=== PATIENT | female | born 1965 | race Caucasian/White ===

== ENCOUNTER → 2017-10-13 | Outpatient (CLI) | payer OTHER ==
--- NOTE | 2017-10-13 09:26 | US ---
EXAMINATION TYPE: US abdomen complete DATE OF EXAM: 10/13/2017 COMPARISON: NONE CLINICAL HISTORY: R10.9 Abdominal Pain. EXAM MEASUREMENTS: Liver Length: 15.2 cm Gallbladder Wall: 0.1 cm CBD: 0.4 cm Spleen: 9.8 cm Right Kidney: 10.0 x 3.7 x 5.1 cm Left Kidney: 10.7 x 5.3 x 5.1 cm Pancreas: Obscured by bowel gas Liver: wnl Gallbladder: No stones seen Evidence for sonographic Sher's sign: no CBD: wnl Spleen: echogenic foci scattered throughout spleen Right Kidney: No hydronephrosis or masses seen Left Kidney: No hydronephrosis or masses seen Upper IVC: wnl Abd Aorta: Mostly Obscured by overlying bowel gas The liver is homogenous. The intrahepatic portion of the IVC and visualized abdominal aorta are with in normal limits. There is no evidence of cholelithiasis. Common bile duct is unremarkable. The pa ncreas is suboptimally evaluated as is obscured by overlying bowel gas on images saved. The spleen i s normal in size, few scattered hyperechoic foci likely reflect calcifications related to old granulo matous disease.. Kidneys are symmetric and free of hydronephrosis. No renal lesions are seen. IMPRESSION: Slightly suboptimal study without suspicious finding seen to account for patient's sympto ms.
== END | disposition home or self-care (01) ==
LOC: RADUSWWP 08:06
PROVIDERS: ATTEND Family Medicine
DX: R10.9 Unspecified abdominal pain (principal)
CPT/HCPCS: 76700

== ENCOUNTER 2021-05-21 13:32 | Emergency (ER) | payer OTHER ==
[2021-05-21 14:00] VITALS: TEMP 97.8
[2021-05-21] MEDS ORDERED: SODIUM CHLORIDE 0.9% 1,000 ML IV STA (14:49)
[2021-05-21] MEDS ORDERED: METOCLOPRAMIDE 5 MG/ML 2 ML VIAL IVP STA (14:49)
[2021-05-21] MEDS ORDERED: diphenhydrAMINE 50 MG/ML 1 ML VIAL IVP STA (14:49)
--- NOTE | 2021-05-21 14:55 | ED ---
General Adult HPI - General Chief complaint: Headache Stated complaint: Headache/Blurred Vision Time Seen by Provider: 05/21/21 14:14 Source: patient Mode of arrival: ambulatory Limitations: no limitations - History of Present Illness Initial comments: This 56-year-old female with a past medical history of hypertension presents emergency Department with left-sided headache that began last night. Patient states she had a slow progression of a left-sided headache last night and then began to have bilateral blurred vision yesterday afternoon. Patient states the blurred vision did resolve on its own later in the evening and the headache did subside, however when she woke up this morning her headache was back and centralized to the left posterior side of her head. She states she did show take some ibuprofen at home which did slightly relieve her pain Patient denies having headaches often. Patient states she does take lisinopril every night and did notice her symptoms resolved last night after taking the medication. Patient denies any one-sided visual change or loss of vision. Patient denies any one-sided weakness, trouble speaking, trouble swallowing. Patient states she did call her primary care provider today who didn't instruct her to come the emergency department for CT scan of her brain. Patient denies any chest pain, shortness of breath, abdominal pain, nausea, vomiting, lightheadedness, dizziness, change in bowel or bladder. She denies any recent falls, neck or back pain. She denies any eye pain. Patient states she does take lisinopril 20 mg a home and is unsure what her blood pressure was yesterday due to her not lopez ving a blood pressure cuff. - Related Data Home Medications Medication Instructions Recorded Confirmed Atorvastatin Calcium [Lipitor] 10 mg PO DAILY 05/21/21 05/21/21 Cholecalciferol [Vitamin D3 (25 25 mcg PO DAILY 05/21/21 05/21/21 Mcg = 1000 Iu)] Sertraline [Zoloft] 50 mg PO DAILY 05/21/21 05/21/21 lisinopriL [Zestril] 20 mg PO DAILY 05/21/21 05/21/21 Allergies Allergy/AdvReac Type Severity Reaction Status Date / Time No Known Allergies Allergy Verified 05/21/21 15:59 Review of Systems ROS Statement: Those systems with pertinent positive or pertinent negative responses have been documented in the HPI. ROS Other: All systems not noted in ROS Statement are negative. Past Medical History Past Medical History: Hypertension History of Any Multi-Drug Resistant Organisms: None Reported Past Surgical History: Appendectomy Past Psychological History: Anxiety, Depression Smoking Status: Current every day smoker Past Alcohol Use History: Occasional Past Drug Use History: None Reported General Exam Limitations: no limitations General appearance: alert, in no apparent distress Head exam: Present: atraumatic, normocephalic, normal inspection, other (No pain to patient's bilateral temples or TMJ area. No sign of temporal arteritis.) Eye exam: Present: normal appearance, PERRL, EOMI. Absent: scleral icterus, conjunctival injection, periorbital swelling, periorbital tenderness Pupils: Present: normal accommodation (Patient states her vision is back at her baseline). Absent: irregular, unequal, miosis, mydriatic ENT exam: Present: normal exam, mucous membranes moist Neck exam: Present: normal inspection. Absent: tenderness, meningismus, lymphadenopathy Respiratory exam: Present: normal lung sounds bilaterally. Absent: respiratory distress, wheezes, rales, rhonchi, stridor Cardiovascular Exam: Present: regular rate, normal rhythm, normal heart sounds. Absent: systolic murmur, diastolic murmur, rubs, gallop, clicks GI/Abdominal exam: Present: soft, normal bowel sounds. Absent: distended, tenderness, guarding, rebound, rigid Extremities exam: Present: normal inspection, full ROM, normal capillary refill. Absent: tenderness, pedal edema, joint swelling, calf tenderness Back exam: Present: normal inspection. Absent: CVA tenderness (R), CVA tenderness (L), paraspinal tenderness, vertebral tenderness Neurological exam: Present: alert, oriented X3, CN II-XII intact Psychiatric exam: Present: normal affect, normal mood Skin exam: Present: warm, dry, intact, normal color. Absent: rash Course Vital Signs 05/21/21 05/21/21 13:57 17:57 Temperature 97.8 F Pulse Rate 71 64 Respiratory 16 18 Rate Blood Pressure 158/86 175/95 O2 Sat by Pulse 99 98 Oximetry Medical Decision Making - Medical Decision Making * This 56-year-old female presents emergency Department with headache that began yesterday. Patient's bilateral blurred vision has resolved on its own and has not returned since last night. Labs unremarkable. Urine unremarkable. CT brain impression without acute intracranial hemorrhage or midline shift. No significant change from prior. CT angiogram [place] [facility] [place] impression: No evidence of high-grade stenosis or intracranial aneurysm. The bacillar and vertebral arteries are patent. The visualized portions of the internal carotid arteries, middle cerebral arteries, anterior cerebral arteries, and p osterior cervical arteries are patent. No evidence of mass effect, or midline shift. The ventricles, sulci, cisterns unremarkable. After receiving fluids, Benadryl and Reglan, patient states her pain significantly decreased and was only at 3/10 compared to 8/10 when arriving, I did offer Toradol and patient states since it would decrease inflammation she would prefer to have it prior to leaving. Prior to discharge, patient denies any blurred vision or headache at this time, blood pressure did increase to 175/95, however patient is due for her lisinopril that she takes every night and was asymptomatic at this time and stated she would follow-up with her primary care provider tomorrow morning. Patient agreed after she leaves the hospital she would take her dose of lisinopril. Patient verbally agreed that she would return to the emergency department if her headache returned or if any new, worsening, or concerning symptoms arise. Patient instructed to take blood pressure at home 2-3 times a day and write down readings and bring to her primary care appointment next week. Prior to discharge, patient denies any visual changes and states her headache has significantly decreased and states it is very dull in nature. Patient verbally agreed to plan. Patient sent home in stable [facility] ition. Case discussed in detail with my attending, - Lab Data Result diagrams: 05/21/21 15:13 05/21/21 15:03 Lab Results 05/21/21 05/21/21 05/21/21 Range/Units 15:02 15:03 15:13 WBC 6.6 (3.8-10.6) k/uL RBC 4.73 (3.80-5.40) m/uL Hgb 14.5 (11.4-16.0) gm/dL Hct 42.9 (34.0-46.0) % MCV 90.7 (80.0-100.0) fL MCH 30.7 (25.0-35.0) pg MCHC 33.8 (31.0-37.0) g/dL RDW 12.3 (11.5-15.5) % Plt Count 186 (150-450) k/uL MPV 9.1 Neutrophils % 58 % Lymphocytes % 32 % Monocytes % 6 % Eosinophils % 1 % Basophils % 0 % Neutrophils # 3.9 (1.3-7.7) k/uL Lymphocytes # 2.1 (1.0-4.8) k/uL Monocytes # 0.4 (0-1.0) k/uL Eosinophils # 0.1 (0-0.7) k/uL Basophils # 0.0 (0-0.2) k/uL ESR 13 (0-20) mm/hr Sodium 139 (137-145) mmol/L Potassium 4.3 (3.5-5.1) mmol/L Chloride 110 H (98-107) mmol/L Carbon Dioxide 25 (22-30) mmol/L Anion Gap 4 mmol/L BUN 13 (7-17) mg/dL Creatinine 0.77 (0.52-1.04) mg/dL Est GFR (CKD-EPI)AfAm >90 (>60 ml/min/1.73 sqM) Est GFR (CKD-EPI)NonAf 86 (>60 ml/min/1.73 sqM) Glucose 84 (74-99) mg/dL Calcium 9.0 (8.4-10.2) mg/dL Total Bilirubin 0.5 (0.2-1.3) mg/dL AST 23 (14-36) U/L ALT 17 (4-34) U/L Alkaline Phosphatase 84 (38-126) U/L C-Reactive Protein <0.5 (<1.0) mg/dL Total Protein 6.4 (6.3-8.2) g/dL Albumin 3.9 (3.5-5.0) g/dL Urine Color Light Yellow Urine Appearance Clear (Clear) Urine pH 6.5 (5.0-8.0) Ur Specific [place] 1.012 (1.001-1.035) Urine Protein Negative (Negative) Urine Glucose (UA) Negative (Negative) Urine Ketones Negative (Negative) Urine Blood Trace H (Negative) Urine Nitrite Negative (Negative) Urine Bilirubin Negative (Negative) Urine Urobilinogen <2.0 (<2.0) mg/dL Ur Leukocyte Esterase Small H (Negative) Urine RBC 4 (0-5) /hpf Urine WBC 2 (0-5) /hpf Ur Squamous Epith Cells 1 (0-4) /hpf Hyaline Casts 1 (0-2) /lpf Urine Mucus Rare H (None) /hpf Disposition Clinical Impression: Headache Disposition: HOME SELF-CARE Condition: Stable Instructions (If sedation given, give patient instructions): Acute Headache (ED) Additional Instructions: Please follow-up with your primary care provider in next 1-2 days. Advised to get a blood pressure cuff and take your blood pressure 2-3 times a day and write down readings and bring with you to primary care provider. Return to the emergency department if any of your symptoms return or if any new, concerning, or worsening symptoms occur. Is patient prescribed a controlled substance at d/c from ED?: No Referrals: Kenney Mari MD [Primary Care Provider] - 1-2 days Time of Disposition: 17:52
[2021-05-21 15:17] LABS: Basophils % (A) 0 %; Eosinophils # (A) 0.1 k/uL (0-0.7); Eosinophils % (A) 1 %; HCT 42.9 % (34.0-46.0); HGB 14.5 gm/dL (11.4-16.0); Lymphocytes # (A) 2.1 k/uL (1.0-4.8); Lymphocytes % (A) 32 %; MCH 30.7 pg (25.0-35.0); MCHC 33.8 g/dL (31.0-37.0); MCV 90.7 fL (80.0-100.0); Mean Platelet Volume 9.1; Monocytes # (A) 0.4 k/uL (0-1.0); Monocytes % (A) 6 %; Neutrophils # (A) 3.9 k/uL (1.3-7.7); Neutrophils % (A) 58 %; Platelet Count 186 k/uL (150-450); RBC 4.73 m/uL (3.80-5.40); RDW 12.3 % (11.5-15.5); WBC 6.6 k/uL (3.8-10.6)
[2021-05-21 15:18] LABS: Appearance,Urine Clear (Clear); Bilirubin,Urine Negative (Negative); Blood,Urine Trace (Negative); Color,Urine Light Yellow; Glucose,Urine (UA) Negative (Negative); Hyaline Casts,Urine 1 /lpf (0-2); Ketones,Urine Negative (Negative); Leukocyte Esterase,Urine Small (Negative); Mucus,Urine Rare /hpf; Nitrite,Urine Negative (Negative); PH, Urine 6.5 (5.0-8.0); Protein,Urine Negative (Negative); RBC,Urine 4 /hpf (0-5); Specific Gravity,Urine 1.012 (1.001-1.035); Squamous Epithelial Cell,Urine 1 /hpf (0-4); Urobilinogen,Urine <2.0 mg/dL (<2.0); WBC,Urine 2 /hpf (0-5)
--- NOTE | 2021-05-21 15:24 | CT ---
EXAMINATION TYPE: CT brain wo con DATE OF EXAM: 05/21/2021 HISTORY: headaches CT DLP: 1043.4 mGycm. Automated Exposure Control for Dose Reduction was Utilized. TECHNIQUE: CT scan of the head is performed without contrast. COMPARISON: CT brain November 26, 2013. FINDINGS: There is no acute intracranial hemorrhage or midline shift identified. Ventricles and sul ci within normal limits in size for patient's age. Nix-white matter differentiation is maintained. The globes are intact and the visualized sinuses are clear. IMPRESSION: No acute intracranial hemorrhage or midline shift. No significant change from prior.
[2021-05-21 15:29] LABS: ALT 17 U/L (4-34); AST 23 U/L (14-36); African American GFR (CKD) >90 (>60 ml/min/1.73 sqM); Albumin 3.9 g/dL (3.5-5.0); Alkaline Phosphatase 84 U/L (38-126); Anion Gap 4 mmol/L; Blood Urea Nitrogen 13 mg/dL (7-17); C Reactive Protein <0.5 mg/dL (<1.0); Carbon Dioxide 25 mmol/L (22-30); Chloride 110 mmol/L (98-107); Glucose 84 mg/dL (74-99); Non-African American GFR(CKD) 86 (>60 ml/min/1.73 sqM); Potassium 4.3 mmol/L (3.5-5.1); Sodium 139 mmol/L (137-145); Total Bilirubin 0.5 mg/dL (0.2-1.3); Total Protein 6.4 g/dL (6.3-8.2)
[2021-05-21 16:10] LABS: Erythrocyte Sedimentation Rate 13 mm/hr (0-20)
--- NOTE | 2021-05-21 17:41 | CT ---
EXAMINATION TYPE: CT angio [facility] [place] [facility] CT DLP: 709.8 mGycm, Automated exposure control for dose reduction was used. DATE OF EXAM: 05/21/2021 5:00 PM COMPARISON: CT brain 05/21/2021. CLINICAL INDICATION:Female, 56 years old with history of headache left side; TECHNIQUE: Axially acquired helical CT angiogram of the head and neck was obtained with contrast util izing 75 cc of [id number]-[id number] administered intravenously. Axial images are supplemented with 3D reconstru ctions which were post-processed at an independent workstation. NASCET criteria used. FINDINGS: No evidence of acute intracranial hemorrhage, mass effect, or midline shift. The ventricles, sulci, a nd cisterns are unremarkable. The visualized portions of the internal carotid arteries, middle cerebral arteries, anterior cerebral arteries, and posterior cerebral arteries are patent. The basilar and vertebral arteries are patent. IMPRESSION: No evidence of high-grade stenosis or intracranial aneurysm.
[2021-05-21] MEDS ORDERED: KETOROLAC 15 MG/ML 1 ML VIAL IVP STA (17:45)
[2021-05-21 17:58] VITALS: BP 175/95; PULSE 64; RESP 18
== END 2021-05-21 18:00 | disposition home or self-care (01) ==
LOC: EC 13:32
DX: R51.9 Headache, unspecified (principal); H53.8 Other visual disturbances; I10 Essential (primary) hypertension; F17.200 Nicotine dependence, unspecified, uncomplicated; Z79.899 Other long term (current) drug therapy
CPT/HCPCS: 36415; 80053; 85652; 85025; 86140; 81001; 70496; 70450; 99284; 96374; 96361; 96375; J1200; J2765; J1885; Q9967